=== PATIENT | male | born 1980 | race Caucasian/White ===

== ENCOUNTER 2017-12-27 20:58 | Emergency (ER) | payer OTHER ==
[~2017-12-27] VITALS: Ht 177.8 cm; Wt 86.2 kg
[~2017-12-27 20:58] MED LIST: CLONIDINE0.1 MG PO; ZOFRAN4 M1 PO
[2017-12-27 22:11] LABS: ABSOLUTE BASOPHIL COUNT 0 /CUMM (0.0-0.2); ABSOLUTE EOSINOPHIL COUNT 0.1 /CUMM (0.0-0.7); ABSOLUTE GRANULOCYTE CT 15.2 /CUMM (1.4-6.5); ABSOLUTE LYMPH COUNT 1.7 /CUMM (1.2-3.4); ABSOLUTE MONOCYTE COUNT 0.6 /CUMM (0.10-0.60); BASOPHIL % 0.2 % (0.0-2.0); EOSINOPHIL % 0.4 % (0-5); MEAN CORPUSCULAR HGB 29.6 PG (27.0-31.0); MEAN CORPUSCULAR HGB CONC 33.5 G/DL (33.0-37.0); MEAN CORPUSCULAR VOLUME 88.2 FL (80.0-94.0); MEAN PLATELET VOLUME 7.5 FL (7.4-10.4); PLATELET COUNT 325 /CUMM (130-400); RBC DISTRIBUTION WIDTH 12.7 % (11.5-14.5); RED BLOOD CELL CT 4.64 /CUMM (4.70-6.10); WHITE BLOOD CELL COUNT 17.5 /CUMM (4.8-10.8)
[2017-12-27 22:32] LABS: GRANULOCYTE % 86.5 % (42.2-75.2)
--- NOTE | 2017-12-27 23:28 | ED PSYCHIATRIC COMPLAINT ---
History of Present Illness General Chief Complaint: ETOH/Drug Related Complaint Stated Complaint: BIBA DETOX Source: patient, family, old records, EMS Exam Limitations: no limitations Vital Signs & Intake/Output Vital Signs & Intake/Output Vital Signs Date Time Temp Pulse Resp B/P B/P Pulse O2 O2 Flow FiO2 Mean Ox Delivery Rate 12/27 2126 97.7 63 20 134/89 100 Room Air Allergies Coded Allergies: Penicillins (HIVES 12/27/17) Sulfa (Sulfonamide Antibiotics) (HIVES 12/27/17) amoxicillin (HIVES 12/27/17) Reconcile Medications No Known Home Medications Triage Note: PT BIBA FOR CONFUSION AFTER DRIVING ONTO AN UNKNOWN PERSON'S DRIVEWAY. PT ADMITTED TO TAKING 1/2 SUBOXONE AND A BEER. PT DENIED SI/HI. PT USED TO BE PRESCRIBED SUBOXONE BUT HAD BEEN OFF IT FOR APPROXIMATELY ONE YEAR. PT WANDED AND CHANGED INTO PAPER SCRUBS Triage Nurses Notes Reviewed? yes Onset: Just prior to arrival Duration: minute(s):, constant Timing: recent history Severity: moderate Associated Symptoms: impaired concentration HPI: Patient has a history of opiate abuse and use Suboxone today. The police were called as he had issues backing his van out of a driveway. Currently he denies fever chills nausea vomiting diarrhea abdominal pain chest pain cough shortness breath headache dysuria rash bleeding. He declines drug detox. Past History Travel History Traveled to [place] past 21 day No Medical History Any Pertinent Medical History? see below for history Neurological: NONE EENT: NONE Cardiovascular: NONE Respiratory: NONE Gastrointestinal: NONE Hepatic: NONE Renal: NONE Musculoskeletal: NONE Psychiatric: substance abuse Endocrine: NONE Blood Disorders: NONE Cancer(s): NONE Tetanus Vaccine: 03/06/13 Surgical History Surgical History: non-contributory Psychosocial History Who do you live with Family What is your primary language Russian Tobacco Use: Never used ETOH Use: occasional use Family History Hx Contributory? No Review of Systems Review of Systems Constitutional: Reports: no symptoms. EENTM: Reports: no symptoms. Respiratory: Reports: no symptoms. Cardiovascular: Reports: no symptoms. GI: Reports: no symptoms. Genitourinary: Reports: no symptoms. Musculoskeletal: Reports: no symptoms. Skin: Reports: no symptoms. Neurological/Psychological: Reports: see HPI, confusion, emotional problems. Hematologic/Endocrine: Reports: no symptoms. Immunologic/Allergic: Reports: no symptoms. All Other Systems: Reviewed and Negative Physical Exam Physical Exam General Appearance: well developed/nourished, alert, awake, comfortable Head: atraumatic, normal appearance Eyes: Bilateral: normal appearance, PERRL, EOMI. 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 patient not suicidal Progress Differential Diagnosis: drug intoxication, drug overdose, drug withdrawal Plan of Care: Orders Procedure Date/time Status URINE DRUG SCREEN FOR ER ONLY 12/28 2155 Active MAGNESIUM 12/28 2155 Complete ETHANOL 12/28 2155 Complete COMPREHENSIVE METABOLIC PANEL 12/28 2155 Complete CBC WITHOUT DIFFERENTIAL 12/28 2155 Complete Laboratory Tests 12/27/17 2204: Anion Gap 9, Estimated GFR > 60, BUN/Creatinine Ratio 17.3, Glucose 143 H, Calcium 9.2, Magnesium 2.0, Total Bilirubin 0.3, AST 25, ALT 35, Alkaline Phosphatase 48, Total Protein 7.0, Albumin 4.6, Globulin 2.4, Albumin/Globulin Ratio 1.9, CBC w Diff NO MAN DIFF REQ, RBC 4.64 L, MCV 88.2, MCH 29.6, MCHC 33.5, RDW 12.7, MPV 7.5, Gran % 86.5 H, Lymphocytes % 9.6 L, Monocytes % 3.3, Eosinophils % 0.4, Basophils % 0.2, Absolute Granulocytes 15.2 H, Absolute Lymphocytes 1.7, Absolute Monocytes 0.6, Absolute Eosinophils 0.1, Absolute Basophils 0, Serum Alcohol < 10.0 Departure Departure Time of Disposition: 2326 Disposition: HOME OR SELF CARE Condition: Stable Clinical Impression Primary Impression: Opiate addiction Referrals: Patient Has No Primary Care Dr (PCP/Family) Departure Forms: Customer Survey General Discharge Information Prescriptions: Current Visit Scripts No Known Home Medications
[2017-12-27 23:33] VITALS: BP 119/81
== END 2017-12-27 23:38 ==
LOC: ERH 20:58
PROVIDERS: Emergency Medicine
DX: F11.20 Opioid dependence, uncomplicated (principal); F10.10 Alcohol abuse, uncomplicated
CPT/HCPCS: 80307; G0480